=== PATIENT | female | born 2000 | race Caucasian/White ===

== ENCOUNTER 2024-05-28 09:58 | Emergency (ER) | payer SELFPAY ==
[2024-05-28 10:00] VITALS: BP 124/78
--- NOTE | 2024-05-28 10:38 | ED.GENMED ---
History of Present Illness
General
Chief Complaint: Abdominal Symptoms
Source: patient and family (Mother)
Exam Limitations: none
Time Seen by Provider: 05/28/24 10:09
Nursing documentation reviewed up to this point in time: agreed with
History of Present Illness
History of Present Illness:
24-year-old female with no reported chronic medical issues presents to the emergency room with her mother for evaluation of abdominal discomfort with nausea and vomiting. Patient reports onset of symptoms about 2 weeks ago and they have been
constant since that time. She reports they seem to be triggered by food. She reports vague epigastric discomfort associate with nausea and 1-2 daily episodes of nonbloody nonbilious emesis. She did have some intermittent loose stools over this
period of time but no consistent diarrhea. She denies any vaginal bleeding or discharge. Last menstrual period was a week ago. She denies any dysuria, hematuria, change in frequency. She says she was seen in urgent care last week for the
symptoms and was told it was likely viral; she was prescribed dicyclomine and Zofran and she says that these helped but symptoms have not improved after another week and so came to the ER for evaluation. She denies any similar symptoms in the past,
denies any prior abdominal surgeries. Only medication is Prozac. She does admit to occasional alcohol and marijuana use.
Review of Systems
Review of Systems
All Other Systems: ROS reviewed and negative except as documented in HPI and ROS
Constitutional: Denies fever or chills
Respiratory: Denies trouble breathing
Cardiac: Denies chest pain
ABD/GI: Reports abdominal pain, nausea, vomiting and diarrhea
: Denies dysuria, frequency, flank pain or bleeding
Musculoskeletal: Denies neck pain or back pain
Neurological: Denies dizzy or headache
Phy Exam
Physical Exam
Physical Exam:
General: Awake, alert, oriented x3; no acute distress
Head: Normocephalic, atraumatic
Eyes: Conjunctiva normal, sclera anicteric
Throat: Airway intact, handling secretions
Neck: Trachea midline, supple without meningismus
Lungs: Clear to auscultation bilaterally, no wheezing, rales, rhonchi
Heart: Regular rate and rhythm, no murmurs, gallops, or rubs
Abd: Soft, non distended, minimal tenderness in the epigastrium
Back: No CVA tenderness
Neuro: Cranial nerves grossly intact, speech fluid
Skin: no rash
Extremities: No edema in extremities, equal pulses in all extremities
Scores
Heart Failure Risk
Heart Failure Risk Score: Not Applicable
Heart Score for Chest Pain Patients
STEMI patient?: Not applicable
Withdrawal Assessment of Alcohol
Withdrawal Assessment Completed?: Not applicable
Course
Orders/Labs/Results
Orders:
Orders
05/28/24 10:09
Test Result ONCE
05/28/24 10:28
CT Abd/pelvis W Iv Cont Urgent
Comment:
Reason For Exam: abd pain, nausea, vomiting
05/28/24 10:29
0.9% Sodium Chloride 1000 ml [Nss] 1,000 ml IV BOLUS
05/28/24 10:42
Complete Blood Count/With Diff Urgent
Comprehensive Metabolic Panel Urgent
HCG, Serum Qualitative Screen Urgent
Lipase Urgent
05/28/24 10:45
Urinalysis Reflex To Culture Urgent
Date Specimen was Collected: 05/28/24
Time Specimen was Collected: 10:44
Urine Microscopic Reflex Cult Urgent
Urine Culture Urgent
ZEUS Source: U
Specimen Description:
Date Specimen was Collected: 05/28/24
Time Specimen was Collected: 10:44
Abnormal Lab Results
05/28/24 05/28/24
10:42 10:45
Hgb 11.9 L g/dL
(12.0-16.0)
Hct 36.3 L %
(37.0-47.0)
MCHC 32.8 L g/dL
(33.0-37.0)
RDW 14.9 H %
(11.5-14.5)
Absolute Monos (auto) 0.7 H 10^3/uL
(0.1-0.6)
Monocytes % 11.5 H %
(1.7-9.3)
Urine Ketones Trace A
(Negative)
Urine Nitrite (Reflex) Positive A
(Negative)
Urine Bilirubin 2+ A
(Negative)
Urine Bacteria (Reflex) Moderate A
(Negative)
05/28/24 10:42
05/28/24 10:42
Vital Signs
Initial and Last Documented VS:
Initial Vital Signs
Temp Pulse Resp BP Pulse Ox
36.7 C 80 16 124/78 97
05/28/24 10:00 05/28/24 10:00 05/28/24 10:00 05/28/24 10:00 05/28/24 10:00
Last Documented Vital Signs
Temp Pulse Resp BP Pulse Ox
36.7 C 75 16 122/84 100
05/28/24 10:00 05/28/24 11:14 05/28/24 10:00 05/28/24 11:14 05/28/24 11:14
MDM/Problems Addressed
Differential Diagnosis Includes:
Gastritis, pancreatitis, cholelithiasis/cholecystitis, enteritis/gastroenteritis, PUD, GERD, cannabinoid hyperemesis
MDM/Problems Addressed:
24-year-old female presents for evaluation of vague abdominal discomfort associate with nausea and vomiting triggered by meals x 2 weeks. Has been taking dicyclomine and Zofran prescribed by urgent care last week�these helped transiently but
symptoms have continually returned. No fevers chills or any other complaints as described above. Vital signs normal. Exam as above. Check labs including a CBC and a CMP. Check lipase. Check hCG. Check urinalysis. Check CT abdomen pelvis.
She appears well-hydrated here. Reassess after the above.
Labs reviewed: CBC shows marginal anemia, CMP no clinically significant abnormalities. LFTs notably normal. Lipase normal. hCG negative. Urinalysis contaminated�no urinary symptoms, I do not suspect UTI at this point. No antibiotics indicated.
CT abdomen pelvis shows no acute pathology to account for symptoms. My suspicion is that this is gastritis/GERD; while she does smoke marijuana she has not had the hyperemesis that we typically see with this although I did advise to decrease
marijuana use. Will start on PPI, Zofran as needed. Advised bland diet. Follow-up with PCP, GI as needed. Patient and mother are comfortable with this plan. All questions answered.
*Radiology
Radiology exam reviewed: radiology read reviewed
*Pulse Oximetry
Patient hypoxic: no
*Critical Care Note
Total Time (30-74mins, 75-104mins- exclusive of procedures): Not Applicable
Data Reviewed
Source: patient and family
ED Attending Note
-
Portions of this chart may have been created with voice recognition software.� Occasional wrong word or��sound alike� substitutions may have occurred due to the inherent limitations of voice recognition software.
Discharge Plan
Departure
Patient Disposition: Home (Routine Discharge)
Date of Disposition: 05/28/24
Time of Disposition: 12:34
Patient with high blood pressure during this ER visit?: No
Discharge Problem:
Gastritis
Instructions: Sharkey Diet, Nausea and Vomiting, Adult (DC)
Prescriptions:
New
pantoprazole [Protonix] 40 mg tablet,delayed release (DR/EC)
40 mg PO DAILY Qty: 30 0RF
ondansetron 4 mg tablet,disintegrating
4 mg PO TIDPRN PRN (Reason: nausea/vomiting) Qty: 10 0RF
Referrals:
NONE,* [Family Provider] -
Birgit Malloy MD [Active] - Call in 1-3 days for appt (GI Doctor--call for an appointment if symptoms persist)
Activity Restrictions/Additional Instructions:
Thank you for visiting the Emergency Department at [facility].
1. Please schedule a follow up appointment as directed. Call first thing tomorrow morning to make an appointment.
2. If indicated, please take your medications as instructed and indicated on discharge paperwork.
3. If any of your symptoms do not improve, or persist, or become more severe within 6-12 hours, please return to the emergency department for further care.
4. Please return to the emergency department if you develop a headache, neck pain/stiffness, fever greater than 100.4F, chest pain, shortness of breath, persistent nausea, vomiting, slurred speech, difficulty walking, numbness/tingling, weakness,
signs of infection or any other symptoms that are worrisome to you.
Please call [phone] if you have any questions.
Interventions
Interventions:
*Risk Screen - Suicide Last Done: 05/28/24 10:00
*General Assessment Last Done: 05/28/24 10:30
*Neglect/Abuse Screening Last Done: 05/28/24 10:00
*Nursing Disposition Last Done: 05/28/24 12:53
HI-Apgfxb-Pavvnkdeuu Assessment Last Done: 05/28/24 10:30
Discharge Date and Time
Discharge Date/Time: 05/28/24 12:54
Print Language: KITTITIAN
[2024-05-28 10:54] LABS: % Basophils 0.3 % (0-2); % Eosinophils 1.3 % (0-6); % Immature Granulocytes 0.2 % (0-0.5); % Lymphocytes 29.4 % (20.5-51.1); % Monocytes 11.5 % (1.7-9.3); % Neutrophils 57.3 % (42.2-75.2); Absolute Eosinophils 0.1 10^3/uL (0-0.7); Absolute Lymphocytes 1.8 10^3/uL (1.2-3.4); Absolute Monocytes 0.7 10^3/uL (0.1-0.6); Absolute Neutrophils 3.5 10^3/uL (1.4-6.5); Hematocrit 36.3 % (37.0-47.0); Hemoglobin 11.9 g/dL (12.0-16.0); Mean Corp Hgb Conc. 32.8 g/dL (33.0-37.0); Mean Corpuscular Hgb 28.3 pg (27.0-31.0); Mean Corpuscular Volume 86.2 fL (81.0-99.0); Mean Platelet Volume 9.9 fL (7.4-10.4); Nucleated Red Blood Cells % 0 %; Platelet Count 394 10^3/uL (130-400); Red Blood Cell Count 4.21 10^6/uL (4.20-5.40); Red Cell Dist. Width 14.9 % (11.5-14.5)
[2024-05-28 11:01] LABS: Urine Albumin Trace (Neg - Trace); Urine Bilirubin 2+ (Negative); Urine Character Clear (Clear); Urine Color Yellow; Urine Glucose Negative (Negative); Urine Ketone Trace (Negative); Urine Leukocyte Negative (Negative); Urine Nitrite Positive (Negative); Urine Occult Blood Negative (Negative); Urine Urobilinogen Negative (Neg - 1+)
[2024-05-28] MEDS: NSS 1000 IV (11:01)
[2024-05-28 11:08] LABS: HCG, Serum Qualitative Screen Negative
[2024-05-28 11:11] LABS: ALT (SGPT) 20 U/L (0-35); AST (SGOT) 22 U/L (14-36); Albumin 4.2 g/dl (3.5-5.0); Alkaline Phosphatase 60 U/L (38-126); Blood Urea Nitrogen 14 mg/dl (7-17); Calcium 9.4 mg/dl (8.4-10.2); Carbon Dioxide 25 mmol/L (22-30); Chloride 103 mmol/L (98-107); Glucose 88 mg/dl (70-99); Lipase 35 U/L (23-300); Sodium 140 mmol/L (135-145); Total Bilirubin 0.8 mg/dl (0.2-1.3); Total Protein 6.6 g/dl (6.3-8.2); eGFR > 60.00
[2024-05-28 11:14] VITALS: BP 122/84
[2024-05-28 11:45] LABS: Urine Squamous Cell 26-30 /LPF (Few)
[2024-05-28 11:46] LABS: Urine Mucus Moderate
[2024-05-28 11:48] LABS: Urine Calcium Oxalate Crystals Present
[2024-05-28 11:49] LABS: Urine Red Blood Cell 0-2 /HPF (0-2); Urine White Cell 0-2 /HPF (0-5)
[2024-05-28 11:52] LABS: Urine Bacteria Moderate (Negative)
== END 2024-05-28 12:54 | disposition home or self-care (01) ==
LOC: EMR 09:58
PROVIDERS: EMERGENCY PHYSICIAN Emergency Medicine
DX: K29.70 Gastritis, unspecified, without bleeding (principal)
CPT/HCPCS: 99285; 96360; 74177; 80053; 81003; 81015; 83690; 84703; 85025; 87086; Q9967